=== PATIENT | female | born 1965 | race Caucasian/White ===

== ENCOUNTER 2020-09-23 12:25 | Emergency (ER) | payer OTHER ==
[~2020-09-23] VITALS: Ht 157.5 cm; Wt 89.4 kg
[2020-09-23] MEDS ORDERED: LEXAPRO 10 MG T10 M2 PO (12:38)
[2020-09-23 13:44] LABS: ABSOLUTE BASOPHILS 0.1 thou/uL (0.0-0.2); ABSOLUTE EOSINOPHILS 0.1 thou/uL (0.0-0.7); ABSOLUTE LYMPHOCYTES 1.5 thou/uL (0.8-5.3); ABSOLUTE MONOCYTES 0.5 thou/uL (0.0-1.2); ABSOLUTE NEUTROPHILS 6.5 thou/uL (1.6-8.1); EOSINOPHILS 0.8 %; HEMATOCRIT 42.1 % (37.0-47.0); HEMOGLOBIN 13.8 gm/dL (12.0-15.0); MCH 30.2 pg (26.0-34.0); MCHC 32.8 g/dL (28.0-37.0); MONOCYTES 6.1 %; NUCLEATED RBCS 0 /100WBC; PLATELET COUNT* 276 thou/uL (150-400); POLYS 75.1 %; RBC 4.58 mil/uL (4.20-5.00); RDW-CV 13.6 % (10.5-14.5); WBC 8.6 thou/uL (4.0-11.0)
[2020-09-23 13:56] LABS: CALCIUM 9.2 mg/dL (8.5-10.1); CREATININE 1.3 mg/dL (0.6-1.3); POTASSIUM 3.4 mmol/L (3.5-5.1)
[2020-09-23 14:01] LABS: ALBUMIN 3.9 g/dL (3.4-5.0); TOTAL PROTEIN 7.8 g/dL (6.4-8.2)
--- NOTE | 2020-09-23 16:22 | EKG ---
[place] [address] ELECTROCARDIOGRAM REPORT Name: CLEOEVELIOSEVERIANO Chace Room: [facility]#: [id number] Admission: 09/23/20 Attend Phys: Discharge: Date of : 63 Date of Service: 09/23/20 1229 Report #: [id number] THIS REPORT FOR: //name// [facility] ED Test Date: 2020-09-23 Test Time: 12:29:08 Pat Name: SEVERIANO GALLO Department: Room: Gender: Pediatric Care Coordinator: : 1965 Requested By: Ramin Harp Order Number: [id number] MD: Anselmo Conklin Measurements Intervals Laura Rate: 72 P: 36 NM: 149 QRS: -1 QRSD: 110 T: 20 QT: 396 QTc: 434 Interpretive Statements Sinus rhythm Incomplete RBBB and LAFB RSR' in V1 or V2, right VCD or RVH No previous ECG available for comparison Electronically Signed On 09-23-2020 16:22:13 CDT by Anselmo Conklin [email or web address] <ELECTRONICALLY SIGNED> By: Anselmo Conklin MD, [facility] 09/23/20 1622 1229 1229 Anselmo Conklin MD, [facility] /EPI
[2020-09-23 19:08] VITALS: BP 157/77
== END 2020-09-23 19:09 | disposition home or self-care (01) ==
LOC: M.ERS 12:25
PROVIDERS: Physician Assistant
DX: R07.89 Other chest pain (principal); M54.6 Pain in thoracic spine; R42 Dizziness and giddiness; R61 Generalized hyperhidrosis; Z88.0 Allergy status to penicillin